=== PATIENT | female | born 1950 | race Caucasian/White ===

== ENCOUNTER 2020-06-04 08:44 | Day surgery (SDC) | payer MEDICARE, BC ==
[2020-06-04] VITALS (8 sets, daily range): BP systolic 98–154; BP diastolic 66–80
[~2020-06-04] VITALS: Ht 170.2 cm; Wt 66.1 kg
[2020-06-04] MEDS ORDERED: ESZO2TAB22 PO (09:49)
[2020-06-04] MEDS ORDERED: THY60T PO (09:49)
[2020-06-04 11:15] LABS: GLUCOSE,BODY FLUID 93 MG/DL; LDH,BODY FLUID 181 U/L; TOTAL PROTEIN,BODY FLUID 4.9 G/DL
[2020-06-04 11:30] LABS: BASOPHILS,BODY FLUID 2 %; BFAPPEAR HAZY; BFCOLOR YELLOW; EOSINOPHILS,BODY FLUID 23 %; LYMPHOCYTES,BODY FLUID 47 %; MONOCYTES,BODY FLUID 23 %; NEUTROPHILS,BODY FLUID 5 %
[2020-06-04 11:31] LABS: BF MESOTHELIAL CELLS MODERATE; BF RBC COUNT 3450 /CU MM; BF WBC COUNT 600 /CU MM (0-1000); BFVOLUME 60 ML
== END 2020-06-04 11:08 | disposition home or self-care (01) ==
LOC: SSTAY O 08:44
PROVIDERS: ATTEND Radiology Vascular & Interventional Radiology
DX: J90 Pleural effusion, not elsewhere classified (principal); M85.80 Other specified disorders of bone density and structure, unspecified site; G43.909 Migraine, unspecified, not intractable, without status migrainosus; E03.9 Hypothyroidism, unspecified; Z98.41 Cataract extraction status, right eye; Z98.42 Cataract extraction status, left eye; Z79.899 Other long term (current) drug therapy; Z96.659 Presence of unspecified artificial knee joint; Z77.22 Contact with and (suspected) exposure to environmental tobacco smoke (acute) (chronic); Z80.1 Family history of malignant neoplasm of trachea, bronchus and lung; Z82.3 Family history of stroke; Z81.8 Family history of other mental and behavioral disorders
CPT/HCPCS: 32555; 71045; 82945; 83615; 84157; 87070; 87075; 89051

== ENCOUNTER 2020-07-06 08:22 | Day surgery (SDC) | payer MEDICARE, BC ==
[2020-07-06] VITALS (18 sets, daily range): BP systolic 103–126; BP diastolic 57–77
[~2020-07-06] VITALS: Ht 170.2 cm; Wt 66.1 kg
[~2020-07-06 08:22] MED LIST: ESZO2TAB22 PO; THY60T PO
[2020-07-06] MEDS ORDERED: albumin 25% 100mL bottle x 1 IV PRN (09:00)
[2020-07-06 09:30] LABS: BASOPHILS % (AUTO) 0.7 % (0-1); EOSINOPHILS # (AUTO) 0.1 X10'3 (0-0.9); EOSINOPHILS % (AUTO) 1.9 % (0-6); HEMATOCRIT 41.4 % (35.0-45.0); HEMOGLOBIN 13.9 g/dl (12.0-16.0); LYMPHOCYTES # (AUTO) 0.8 X10'3 (1.1-4.8); LYMPHOCYTES % (AUTO) 13.6 % (21-51); MEAN CORPUSCULAR HEMOGLOBIN 29.1 PG (27.0-31.0); MEAN CORPUSCULAR HGB CONC 33.6 g/dL (33.0-36.5); MEAN CORPUSCULAR VOLUME 86.5 FL (78-98); MEAN PLATELET VOLUME 7.5 FL (7.4-10.4); MONOCYTES # (AUTO) 0.5 X10'3 (0-0.9); MONOCYTES % (AUTO) 9.5 % (2-12); NEUTROPHILS # (AUTO) 4.1 X10'3 (1.8-7.7); NEUTROPHILS % (AUTO) 74.3 % (42-75); PLATELET COUNT 366 X10'3 (140-440); RED BLOOD COUNT 4.79 X10'6 (4.20-5.60); RED CELL DISTRIBUTION WIDTH 13.6 % (11.5-14.5); WHITE BLOOD COUNT 5.6 X10'3 (4.5-11.0)
[2020-07-06] MEDS ORDERED: fentaNYL/PF 50MCG/1 ML 2ML syringe ONE (10:03)
[2020-07-06] MEDS ORDERED: gelatin sponge, absorbable (Gelfoam 12-7MM) sponge TP ONE (10:20)
== END 2020-07-06 14:45 | disposition home or self-care (01) ==
LOC: SSTAY O 08:22
PROVIDERS: ATTEND Radiology Vascular & Interventional Radiology
DX: J90 Pleural effusion, not elsewhere classified (principal); K76.9 Liver disease, unspecified; E03.9 Hypothyroidism, unspecified; G43.909 Migraine, unspecified, not intractable, without status migrainosus; M85.80 Other specified disorders of bone density and structure, unspecified site; Z98.890 Other specified postprocedural states; Z88.0 Allergy status to penicillin; Z79.899 Other long term (current) drug therapy; Z20.822 Contact with and (suspected) exposure to COVID-19
CPT/HCPCS: 32555; 36415; 47000; 71045; 76942; 85025; 87635; J3010

== ENCOUNTER 2020-08-17 10:23 | Outpatient (CLI) | payer MEDICARE, BC | END 2020-08-17 23:59 | disposition home or self-care (01) | LOC: RAD 10:23 | PROVIDERS: ATTEND Family Medicine | DX: R18.8 Other ascites (principal); I70.0 Atherosclerosis of aorta | CPT/HCPCS: 76700 ==

== ENCOUNTER 2020-08-30 06:40 | Day surgery (SDC) | payer MEDICARE, BC ==
[~2020-08-30] VITALS: Ht 170.2 cm; Wt 58.8 kg
[2020-08-30 07:20] VITALS: BP 122/74
[2020-08-30] MEDS ORDERED: albumin 25% 100mL bottle x 1 IV PRN (07:20)
[2020-08-30 08:25] VITALS: BP 136/76
[2020-08-30 08:40] VITALS: BP 126/75
[2020-08-30 08:55] VITALS: BP 107/65
[2020-08-30 09:10] VITALS: BP 131/77
[2020-08-30 09:25] VITALS: BP 134/78
[2020-08-30 10:40] LABS: BFAPPEAR CLOUDY; LYMPHOCYTES,BODY FLUID 78 %; MONOCYTES,BODY FLUID 6 %; NEUTROPHILS,BODY FLUID 16 %
[2020-08-30 10:41] LABS: BF RBC COUNT 1570 /CU MM; BF WBC COUNT 395 /CU MM (0-1000); BFCOLOR YELLOW; BFVOLUME 49 ML
== END 2020-08-30 09:30 | disposition home or self-care (01) ==
LOC: SSTAY O 06:40
PROVIDERS: ATTEND Radiology Vascular & Interventional Radiology
DX: R18.8 Other ascites (principal); J90 Pleural effusion, not elsewhere classified; C22.8 Malignant neoplasm of liver, primary, unspecified as to type; E03.9 Hypothyroidism, unspecified; G43.909 Migraine, unspecified, not intractable, without status migrainosus; Z98.890 Other specified postprocedural states; Z98.49 Cataract extraction status, unspecified eye; Z88.0 Allergy status to penicillin; Z79.899 Other long term (current) drug therapy; Z85.43 Personal history of malignant neoplasm of ovary
CPT/HCPCS: 49083; 87070; 89051

== ENCOUNTER 2020-10-24 13:02 | Emergency (ER) | payer MEDICARE, BC ==
[~2020-10-24] VITALS: Ht 167.6 cm; Wt 55.0 kg
[2020-10-24] MEDS ORDERED: furosemide 10 MG/1 ML 10ml inj IV ONE (13:45)
[2020-10-24] MEDS: furosemide 40mg/4ml inj IV ONE ×2 (13:45→14:48)
[2020-10-24 14:10] LABS: ALANINE AMINOTRANSFERASE 21 U/L (12-78); ALBUMIN 2.2 G/DL (3.4-5.0); ALBUMIN/GLOBULIN RATIO 0.6 (1.1-1.5); ALKALINE PHOSPHATASE 96 IU/L (46-116); ANION GAP 10 (8-16); ASPARTATE AMINO TRANSFERASE 30 U/L (10-37); BILIRUBIN,TOTAL 0.2 MG/DL (0.1-1.0); BLOOD UREA NITROGEN 21 MG/DL (7-18); BUN/CREATININE RATIO 26.3 (6.6-38.0); CALCIUM 8.6 MG/DL (8.5-10.1); CHLORIDE 105 MMOL/L (99-107); GLUCOSE 126 MG/DL (70-104); SODIUM 139 MMOL/L (135-145); TOTAL CARBON DIOXIDE 24.5 MMOL/L (24-32); TOTAL PROTEIN 6.1 G/DL (6.4-8.2); eGFR 71 ML/MIN
[2020-10-24 14:11] LABS: POTASSIUM 4.1 MMOL/L (3.5-5.1)
[2020-10-24] MEDS ORDERED: albumin (human) 25% 100 ML IV solution IV ONE (14:20)
--- NOTE | 2020-10-24 14:30 | NUR ---
POST PROCEEDURE NOTE: LEFT ULTRASOUND GUIDED THORACENTESIS: 600 ML SEROSANGUINOUS FLUID REMOVED PER WENDY RN: PATIENT TOLERATED PROCEEDURE WELL, PATIETN STATES THAT SHE CAN BREATHE BETTER SEE VITALS
[2020-10-24 14:41] LABS: BASOPHILS % (AUTO) 0.8 % (0-1); EOSINOPHILS # (AUTO) 0.2 X10'3 (0-0.9); EOSINOPHILS % (AUTO) 3.7 % (0-6); HEMATOCRIT 41.3 % (35.0-45.0); HEMOGLOBIN 13.7 g/dl (12.0-16.0); LYMPHOCYTES # (AUTO) 0.6 X10'3 (1.1-4.8); LYMPHOCYTES % (AUTO) 13.7 % (21-51); MEAN CORPUSCULAR HGB CONC 33.1 g/dL (33.0-36.5); MEAN CORPUSCULAR VOLUME 90.7 FL (78-98); MEAN PLATELET VOLUME 7.6 FL (7.4-10.4); MONOCYTES # (AUTO) 0.2 X10'3 (0-0.9); MONOCYTES % (AUTO) 4.1 % (2-12); NEUTROPHILS # (AUTO) 3.3 X10'3 (1.8-7.7); NEUTROPHILS % (AUTO) 77.7 % (42-75); PLATELET COUNT 427 X10'3 (140-440); RED BLOOD COUNT 4.55 X10'6 (4.20-5.60); RED CELL DISTRIBUTION WIDTH 16.1 % (11.5-14.5); WHITE BLOOD COUNT 4.2 X10'3 (4.5-11.0)
[2020-10-24 15:26] VITALS: BP 111/73
== END 2020-10-24 15:28 | disposition home or self-care (01) ==
LOC: ER 13:03
DX: C79.60 Secondary malignant neoplasm of unspecified ovary (principal); J90 Pleural effusion, not elsewhere classified; E86.0 Dehydration; Z85.43 Personal history of malignant neoplasm of ovary; Z88.0 Allergy status to penicillin; Z88.8 Allergy status to other drugs, medicaments and biological substances; Z79.899 Other long term (current) drug therapy; Z98.890 Other specified postprocedural states
CPT/HCPCS: 32555; 36415; 71045; 80053; 83880; 84484; 85025; 93005; 96365; 99285; P9047; 32554; J1940

== ENCOUNTER 2020-10-28 18:11 | Emergency (ER) | payer MEDICARE, BC ==
[~2020-10-28] VITALS: Ht 170.2 cm; Wt 52.9 kg
[2020-10-28 19:25] LABS: BASOPHILS % (AUTO) 0.8 % (0-1); EOSINOPHILS # (AUTO) 0.2 X10'3 (0-0.9); EOSINOPHILS % (AUTO) 4.3 % (0-6); HEMATOCRIT 40.9 % (35.0-45.0); HEMOGLOBIN 13.4 g/dl (12.0-16.0); LYMPHOCYTES # (AUTO) 0.5 X10'3 (1.1-4.8); LYMPHOCYTES % (AUTO) 11.8 % (21-51); MEAN CORPUSCULAR HEMOGLOBIN 29.6 PG (27.0-31.0); MEAN CORPUSCULAR HGB CONC 32.9 g/dL (33.0-36.5); MEAN PLATELET VOLUME 7.6 FL (7.4-10.4); MONOCYTES # (AUTO) 0.4 X10'3 (0-0.9); NEUTROPHILS # (AUTO) 3.5 X10'3 (1.8-7.7); NEUTROPHILS % (AUTO) 74.1 % (42-75); PLATELET COUNT 431 X10'3 (140-440); RED BLOOD COUNT 4.54 X10'6 (4.20-5.60); RED CELL DISTRIBUTION WIDTH 15.4 % (11.5-14.5); WHITE BLOOD COUNT 4.7 X10'3 (4.5-11.0)
[2020-10-28 19:39] LABS: ALANINE AMINOTRANSFERASE 16 U/L (12-78); ALBUMIN 2.3 G/DL (3.4-5.0); ALBUMIN/GLOBULIN RATIO 0.7 (1.1-1.5); ALKALINE PHOSPHATASE 84 IU/L (46-116); ANION GAP 12 (8-16); ASPARTATE AMINO TRANSFERASE 22 U/L (10-37); BILIRUBIN,TOTAL 0.2 MG/DL (0.1-1.0); BLOOD UREA NITROGEN 19 MG/DL (7-18); BUN/CREATININE RATIO 20.9 (6.6-38.0); CALCIUM 8.6 MG/DL (8.5-10.1); CHLORIDE 105 MMOL/L (99-107); CREATININE 0.91 MG/DL (0.40-0.90); GLUCOSE 108 MG/DL (70-104); POTASSIUM 4.2 MMOL/L (3.5-5.1); SODIUM 140 MMOL/L (135-145); TOTAL CARBON DIOXIDE 23.3 MMOL/L (24-32); TOTAL PROTEIN 5.8 G/DL (6.4-8.2); eGFR 61 ML/MIN
[2020-10-28 19:48] LABS: TROPONIN I < 0.04 NG/ML (0.0-0.05)
[2020-10-28] MEDS ORDERED: iohexol 350MG/ML 100ml bottle IV ONE (19:48)
[2020-10-28] MEDS ORDERED: LIDOcaine 1% W/epiNEPHrine 1:200,000 10ml vial IJ ONE (21:45)
--- NOTE | 2020-10-28 22:00 | NUR ---
CONSENT SIGNED FOR LEFT THORACENTESIS, PRE PROCEEDURAL CHECKLIST COMPLETED, SEE VITAL SIGNS
--- NOTE | 2020-10-28 22:25 | NUR ---
LEFT THORACENTESIS COMPLETED: 800 ML OF SEROSANGUINOUS DRAINAGE, PATIETN TOLERATED PROCEEDURE WELL, PATIETN STATES THAT SHE CAN BREATHE BETTER AT THIS TIME.
[2020-10-28 23:21] VITALS: BP 100/71
== END 2020-10-28 22:45 | disposition home or self-care (01) ==
LOC: ER 18:12
DX: J90 Pleural effusion, not elsewhere classified (principal); Z85.43 Personal history of malignant neoplasm of ovary; Z88.0 Allergy status to penicillin; Z88.8 Allergy status to other drugs, medicaments and biological substances; Z79.899 Other long term (current) drug therapy
CPT/HCPCS: 36415; 71045; 71046; 71275; 80053; 83880; 84484; 85025; 93005; 99285; Q9967

== ENCOUNTER 2020-11-02 08:58 | Day surgery (SDC) | payer MEDICARE, BC ==
[~2020-11-02] VITALS: Ht 170.2 cm; Wt 54.7 kg
[2020-11-02] VITALS (7 sets, daily range): BP systolic 98–142; BP diastolic 67–83
[2020-11-02] MEDS ORDERED: albumin 25% 100mL bottle x 1 IV PRN (09:35)
== END 2020-11-02 12:15 | disposition home or self-care (01) ==
LOC: SSTAY O 08:58
PROVIDERS: ATTEND Radiology Vascular & Interventional Radiology
DX: J90 Pleural effusion, not elsewhere classified (principal); C56.9 Malignant neoplasm of unspecified ovary; E03.9 Hypothyroidism, unspecified; G43.909 Migraine, unspecified, not intractable, without status migrainosus; Z98.890 Other specified postprocedural states; Z88.0 Allergy status to penicillin; Z88.8 Allergy status to other drugs, medicaments and biological substances; Z79.899 Other long term (current) drug therapy
CPT/HCPCS: 32555; 71045

== ENCOUNTER 2020-11-12 08:44 | Day surgery (SDC) | payer MEDICARE, BC ==
[~2020-11-12] VITALS: Ht 170.2 cm; Wt 54.7 kg
[2020-11-12] VITALS (7 sets, daily range): BP systolic 100–118; BP diastolic 60–77
[2020-11-12] MEDS ORDERED: MULT-1085 PO (09:55)
[2020-11-12] MEDS ORDERED: ALPR1TAB2 PO (09:55)
[2020-11-12] MEDS ORDERED: [UNRECOGNIZED DRUG - OTHER] PO (09:55)
[2020-11-12] MEDS ORDERED: FISH OIL PO (09:55)
[2020-11-12] MEDS ORDERED: LIDOcaine 1%/PF 5ML 10 MG/ML VIAL ONE (10:01)
[2020-11-12] MEDS ORDERED: fentaNYL/PF 50MCG/1 ML 2ML syringe ONE (10:02)
[2020-11-12] MEDS ORDERED: normal saline 1000ml 1,000 ML IV SCH (12:05)
== END 2020-11-12 13:30 | disposition home or self-care (01) ==
LOC: SSTAY O 08:44
PROVIDERS: ATTEND Radiology Vascular & Interventional Radiology
DX: C56.9 Malignant neoplasm of unspecified ovary (principal); J90 Pleural effusion, not elsewhere classified; E03.9 Hypothyroidism, unspecified; M85.80 Other specified disorders of bone density and structure, unspecified site; G43.909 Migraine, unspecified, not intractable, without status migrainosus; Z98.41 Cataract extraction status, right eye; Z98.42 Cataract extraction status, left eye; Z98.890 Other specified postprocedural states; Z77.22 Contact with and (suspected) exposure to environmental tobacco smoke (acute) (chronic); Z96.659 Presence of unspecified artificial knee joint
CPT/HCPCS: 36558; 76604; 76937; 77001; 99152; 99153; C1751; C1894; J3010; A9270

== ENCOUNTER 2020-12-13 08:32 | Day surgery (SDC) | payer MEDICARE, BC ==
[~2020-12-13] VITALS: Ht 170.2 cm; Wt 51.9 kg
[~2020-12-13 08:32] MED LIST changes: +ALPR1TAB2 PO; +FISH OIL PO; +MULT-1085 PO; +[UNRECOGNIZED DRUG - OTHER] PO
[2020-12-13 09:00] VITALS: BP 120/78
[2020-12-13 09:15] VITALS: BP 104/68
[2020-12-13 09:31] VITALS: BP 111/71
[2020-12-13 09:45] VITALS: BP 107/71
[2020-12-13 10:00] VITALS: BP 112/78
[2020-12-13 10:15] VITALS: BP 131/82
== END 2020-12-13 11:30 | disposition home or self-care (01) ==
LOC: SSTAY O 08:32
PROVIDERS: ATTEND Radiology Vascular & Interventional Radiology
DX: J90 Pleural effusion, not elsewhere classified (principal); E03.9 Hypothyroidism, unspecified; G43.909 Migraine, unspecified, not intractable, without status migrainosus; M85.80 Other specified disorders of bone density and structure, unspecified site; Z85.43 Personal history of malignant neoplasm of ovary; Z98.41 Cataract extraction status, right eye; Z98.42 Cataract extraction status, left eye; Z98.890 Other specified postprocedural states; Z88.0 Allergy status to penicillin; Z88.8 Allergy status to other drugs, medicaments and biological substances; Z79.899 Other long term (current) drug therapy
CPT/HCPCS: 32555